=== PATIENT | female | born 1960 | race Caucasian/White ===

== ENCOUNTER 2023-11-07 17:17 | Emergency (ER) | payer SELFPAY ==
[2023-11-07 17:17] VITALS: BMI 22.8
[2023-11-07 17:18] VITALS: BP 179/86
--- NOTE | 2023-11-07 18:23 | ED.GENMED ---
History of Present Illness
General
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
Source: patient
Exam Limitations: none
Time Seen by Provider: 11/07/23 18:09
Nursing documentation reviewed up to this point in time: agreed with
History of Present Illness
History of Present Illness:
70 yr old female visiting from [facility] presents to the ED with c/o of lower abdominal pain. PT reports she started with 'uterine pain ,' 2 days ago. Initially started 2 days ago went away and came back today. It is persistent [id number] is
with patient reports the patient had similar pain in the past when she was in [place] several years ago and was diagnosed with a uterine infection. Patient feels that this is similar. She does feel the pain radiates from her lower abdomen to her
back. She denies any associated nausea vomiting fever chills urinary frequency urgency dysuria. Denies any constipation diarrhea.
She has salpingectomy she believes left in the past from a ectopic . No other abdominal surgeries. [id number] reports patient has never had a colonoscopy..
Review of Systems
Review of Systems
Allergies reviewed?: Yes
All Other Systems: ROS reviewed and negative except as documented in HPI and ROS
Constitutional: Reports no symptoms; Denies fever, fatigue or chills
Respiratory: Reports no symptoms
Cardiac: Reports no symptoms
ABD/GI: Reports abdominal pain; Denies nausea, vomiting, diarrhea or constipated
: Reports no symptoms; Denies dysuria, frequency, flank pain, incontinence, difficulty voiding, urgency, bleeding or discharge
Musculoskeletal: Reports back pain
Skin: Reports no symptoms
Neurological: Reports no symptoms
Psychiatric: Reports no symptoms
Phy Exam
General Physical Exam
General Presentation: no apparent distress
General age: appears stated age
General Skin: warm and dry
General Habitus: normal
General Hydration: appears well hydrated
Cardiovascular Exam
Cardiovascular Exam: regular rate/rhythm, no murmur and normal peripheral pulses
Pulmonary Exam
Pulmonary Exam: lungs clear and no respiratory distress
Gastrointestinal Exam
Gastrointestinal Exam: soft and other (suprapubic tenderness )
Neurological Exam
Neurological Exam: alert and oriented x3
Musculoskeletal Exam
Musculoskeletal Exam: full ROM
Skin Exam
Skin Exam: normal color and warm/dry
Psychiatric Exam
Psychiatric Exam: normal mood/affect
Course
Orders/Labs/Results
Orders:
Orders
11/07/23 18:20
IV Insert/Care/Rem.- Treatment PRN
11/07/23 18:21
US Pelvis Only (non-obstetric) Urgent
Comment:
Reason For Exam: suprapubic pain
11/07/23 18:22
0.9% Sodium Chloride 1000 ml [Nss] 1,000 ml IV BOLUS
11/07/23 18:40
Complete Blood Count/With Diff Urgent
Comprehensive Metabolic Panel Urgent
Lipase Urgent
Urinalysis Reflex To Culture Urgent
Date Specimen was Collected: 11/07/23
Time Specimen was Collected: 18:28
11/07/23 19:03
CT Abd/pel W Iv And Oral Contr Urgent
Comment:
Reason For Exam: lower abd pain
Iohexol [Omnipaque] See Protocol PO NOW STA
11/07/23 23:40
Ketorolac [Toradol] 15 mg IV NOW STA
11/08/23 00:19
Amoxicillin 875 mg/Clav 125 mg [Augmentin 875 mg/125 mg] 1 tablet PO NOW STA
Abnormal Lab Results
11/07/23
18:40
RBC 3.74 L 10^6/uL
(4.20-5.40)
Hgb 11.6 L g/dL
(12.0-16.0)
Hct 33.3 L %
(37.0-47.0)
Absolute Monos (auto) 1.0 H 10^3/uL
(0.1-0.6)
Lymphocytes % 17.3 L %
(20.5-51.1)
Monocytes % 12.1 H %
(1.7-9.3)
11/07/23 18:40
11/07/23 18:40
Vital Signs
Initial and Last Documented VS:
Initial Vital Signs
Temp Pulse Resp BP Pulse Ox
99.3 F 90 16 179/86 98
11/07/23 17:18 11/07/23 17:18 11/07/23 17:18 11/07/23 17:18 11/07/23 17:18
Last Documented Vital Signs
Temp Pulse Resp BP Pulse Ox
99.3 F 82 14 165/81 98
11/07/23 17:18 11/07/23 18:27 11/07/23 18:27 11/07/23 21:00 11/07/23 21:45
MDM/Problems Addressed
Differential Diagnosis Includes:
Not limited to UTI, diverticulitis less likely appendicitis
MDM/Problems Addressed:
Patient presents with lower abdominal pain. She is from [place] visiting her prior history of colonoscopy. Patient is nontoxic denies any fever chills stable vital signs and is afebrile with a normal white count hemoglobin stable 11.6 normal
chemistries negative urinalysis. CAT scan does show acute diverticulitis/short segment colitis of the sigmoid colon. All findings were reviewed with patient and daughter who is translating.
It is recommended that she follow-up with her family doctor in [place]. She is going back in the next 2 days. Also recommended to get colonoscopy which I did review.
*Radiology
Radiology exam reviewed: radiology read reviewed
*Critical Care Note
Total Time (30-74mins, 75-104mins- exclusive of procedures): Not Applicable
ED Attending Note
-
Portions of this chart may have been created with voice recognition software.� Occasional wrong word or��sound alike� substitutions may have occurred due to the inherent limitations of voice recognition software.
Discharge Plan
Departure
Patient Disposition: Home (Routine Discharge)
Date of Disposition: 11/08/23
Time of Disposition: 00:19
Patient with high blood pressure during this ER visit?: Yes
Covid-19: Not Applicable
Discharge Problem:
Diverticulitis, Colitis
Instructions: Diverticulitis (DC), Colitis (DC), BLOOD PRESSURE
Prescriptions:
New
amoxicillin-pot clavulanate 875-125 mg tablet
1 tab PO BID Qty: 20 0RF
Referrals:
NONE,* [Family Provider] -
Activity Restrictions/Additional Instructions:
Antibiotic as directed daily for the next 10 days. Follow-up with your family doctor in [place].
it is recommended that you have a colonoscopy. return if any worsening of symptoms
Interventions
Interventions:
*Risk Screen - Suicide Last Done: 11/07/23 18:27
*General Assessment Last Done: 11/07/23 18:27
*Neglect/Abuse Screening Last Done: 11/07/23 18:27
ED- Fall Risk Assessment Last Done: 11/07/23 18:27
*ED COVID-19 Vaccine History Last Done: 11/07/23 18:27
ED-Female Genitourinary Assessment Last Done: 11/07/23 18:27
Discharge Date and Time
Print Language: GREEK
[2023-11-07 18:29] VITALS: BP 146/70
[2023-11-07] MEDS: NSS 1000 IV (18:50)
[2023-11-07 18:57] LABS: % Basophils 0.5 % (0-2); % Eosinophils 0.9 % (0-6); % Immature Granulocytes 0.5 % (0-0.5); % Lymphocytes 17.3 % (20.5-51.1); % Monocytes 12.1 % (1.7-9.3); % Neutrophils 68.7 % (42.2-75.2); Absolute Eosinophils 0.1 10^3/uL (0-0.7); Absolute Lymphocytes 1.4 10^3/uL (1.2-3.4); Absolute Neutrophils 5.4 10^3/uL (1.4-6.5); Hematocrit 33.3 % (37.0-47.0); Hemoglobin 11.6 g/dL (12.0-16.0); Mean Corp Hgb Conc. 34.8 g/dL (33.0-37.0); Mean Platelet Volume 9.7 fL (7.4-10.4); Nucleated Red Blood Cells % 0 %; Platelet Count 182 10^3/uL (130-400); Red Blood Cell Count 3.74 10^6/uL (4.20-5.40); Red Cell Dist. Width 12.3 % (11.5-14.5); White Blood Cell Count 7.9 10^3/uL (4.8-10.8)
[2023-11-07 18:58] LABS: Urine Albumin Negative (Neg - Trace); Urine Bilirubin Negative (Negative); Urine Character Clear (Clear); Urine Color Straw; Urine Glucose Negative (Negative); Urine Ketone Negative (Negative); Urine Leukocyte Negative (Negative); Urine Nitrite Negative (Negative); Urine Occult Blood Negative (Negative); Urine Specific Gravity 1.005 (<1.030); Urine Urobilinogen Negative (Neg - 1+)
[2023-11-07 19:00] VITALS: BP 149/67
[2023-11-07 19:15] LABS: ALT (SGPT) 14 U/L (0-35); AST (SGOT) 24 U/L (14-36); Albumin 4.6 g/dl (3.5-5.0); Alkaline Phosphatase 69 U/L (38-126); Blood Urea Nitrogen 11 mg/dl (7-17); Calcium 9.8 mg/dl (8.4-10.2); Carbon Dioxide 27 mmol/L (22-30); Chloride 105 mmol/L (98-107); Estimated Creatinine Clearance 67 ml/min; Glucose 80 mg/dl (70-99); Lipase 92 U/L (23-300); Potassium 3.8 mmol/L (3.5-5.1); Sodium 142 mmol/L (135-145); Total Bilirubin 0.6 mg/dl (0.2-1.3); Total Protein 6.8 g/dl (6.3-8.2); eGFR > 60.00
[2023-11-07] MEDS: OMNIPAQUE 50 ML PO (19:46)
[2023-11-07 20:00] VITALS: BP 159/93
[2023-11-07 21:00] VITALS: BP 165/81
[2023-11-07] MEDS: TORADOL 15 MG IV (23:44)
[2023-11-08] MEDS: AUGMENTIN 875 MG/125 MG 1 TABLET PO (01:06)
[2023-11-08 01:12] VITALS: BP 160/89
== END 2023-11-08 01:13 | disposition home or self-care (01) ==
LOC: EMR 17:17
PROVIDERS: Nurse Practitioner; EMERGENCY PHYSICIAN Emergency Medicine
DX: K57.32 Diverticulitis of large intestine without perforation or abscess without bleeding (principal); K52.9 Noninfective gastroenteritis and colitis, unspecified
CPT/HCPCS: 99284; 96374; 96361; 74177; 76856; 80053; 81003; 83690; 85025; Q9967